=== PATIENT | male | born 1945 | race African-American/Black ===

== ENCOUNTER 2017-06-25 16:42 | Emergency (ER) | payer MEDICARE, OTHER ==
[~2017-06-25] VITALS: Ht 185.4 cm; Wt 72.6 kg
[~2017-06-25 16:42] MED LIST: GAB400C PO; METO-169 PO; POT20T PO
[2017-06-25] MEDS ORDERED: SODIUM CHLORIDE 0.9% 1,000 ML IV ONE (17:18)
[2017-06-25 18:04] LABS: Eosinophils # (auto) 0.3 uL; Lymphocytes # (auto) 1.4 uL; Monocytes # (auto) 0.3 uL; Neutrophils # (auto) 3.6 uL; White Blood Cell 5.6 10^3/uL (4.4-10.8)
[2017-06-25 18:05] LABS: Basophils # (auto) 0 uL
[2017-06-25 18:07] LABS: Hemoglobin 10.2 g/dL (13.5-17.5); Mean Corpuscular Hemoglobin 37.3 pg (28.0-32.0); Mean Corpuscular Volume 109.9 fL (80.0-100.0); Red Blood Cells 2.73 10^6/uL (4.5-5.90)
[2017-06-25 18:08] LABS: Platelet Count (auto) 177 10^3/uL (140-450); Red Cell Distribution Width 17.1 % (11.8-14.3)
[2017-06-25 18:09] LABS: Eosinophils % (auto) 4.8 % (0.0-7.0); Lymphocytes % (auto) 24.7 % (10.0-50.0); Monocytes % (auto) 6.2 % (0.0-12.0); Neutrophils % (auto) 63.3 % (37.0-80.0)
[2017-06-25 18:29] LABS: Alanine Aminotransferase 18 U/L (16-61); Albumin 2.9 g/dL (3.4-5.0); Alkaline Phosphatase 85 U/L (45-117); Anion Gap 9 (5-15); Aspartate Aminotransferase 24 U/L (15-37); BUN/Creatinine Ratio 9.9; Bilirubin, Total 0.4 mg/dL (0.2-1.0); Blood Urea Nitrogen 7 mg/dL (7-18); Calcium 7.5 mg/dL (8.5-10.1); Carbon Dioxide 23 mmol/L (21-32); Chloride 105 mmol/L (98-107); GFR African American 141 mL/min; GFR Non-African American 117 mL/min; Glucose 86 mg/dL (74-106); Magnesium 2.2 mg/dL (1.6-2.6); Potassium 3.9 mmol/L (3.5-5.1); Sodium 137 mmol/L (136-145); Total Protein 6.7 g/dL (6.4-8.2)
[2017-06-25 21:00] VITALS: BP 112/74
== END 2017-06-25 21:18 | disposition short-term general hospital (02) ==
LOC: EDBD 16:42 → ER 16:52
DX: S22.019A Unspecified fracture of first thoracic vertebra, initial encounter for closed fracture (principal); S12.101A Unspecified nondisplaced fracture of second cervical vertebra, initial encounter for closed fracture; S01.01XA Laceration without foreign body of scalp, initial encounter; F10.129 Alcohol abuse with intoxication, unspecified; F17.210 Nicotine dependence, cigarettes, uncomplicated; I10 Essential (primary) hypertension; R41.82 Altered mental status, unspecified; D64.9 Anemia, unspecified; Z88.0 Allergy status to penicillin; Z87.11 Personal history of peptic ulcer disease; Z86.73 Personal history of transient ischemic attack (TIA), and cerebral infarction without residual deficits; Z90.49 Acquired absence of other specified parts of digestive tract; W10.8XXA Fall (on) (from) other stairs and steps, initial encounter; Y93.89 Activity, other specified; Y92.89 Other specified places as the place of occurrence of the external cause; Y99.8 Other external cause status
CPT/HCPCS: 36415; 70450; 71045; 72125; 80053; 80320; 83735; 84484; 85025; 93005; 94761; 96360; 99285; J7030